=== PATIENT | male | born 1990 | race Caucasian/White ===

== ENCOUNTER 2019-09-23 10:15 | Outpatient (CLI) | payer BC ==
[~2019-09-23 10:15] MED LIST: FLO0.4C PO; HYDR-4353 PO; HYDR-4383 PO; ONDA8TAB13 PO
[2019-09-23] MEDS ORDERED: LIDOcaine 2% 5ml jelly ONE (11:23)
== END 2019-09-23 13:13 | disposition home or self-care (01) ==
LOC: WOUND CARE 10:15 → EDSTATUS 10:30 → WOUND CARE 13:13
PROVIDERS: ATTEND Surgery
DX: T81.30XA Disruption of wound, unspecified, initial encounter (principal); L98.492 Non-pressure chronic ulcer of skin of other sites with fat layer exposed; K65.1 Peritoneal abscess; N13.2 Hydronephrosis with renal and ureteral calculous obstruction; K80.20 Calculus of gallbladder without cholecystitis without obstruction; F17.200 Nicotine dependence, unspecified, uncomplicated; Z90.49 Acquired absence of other specified parts of digestive tract; Z79.899 Other long term (current) drug therapy; Z85.038 Personal history of other malignant neoplasm of large intestine
CPT/HCPCS: 97605; A4456; A4663; A6234

== ENCOUNTER 2019-09-26 09:04 | Outpatient (CLI) | payer BC ==
[~2019-09-26 09:04] MED LIST changes: +iohexol 350MG/ML 100ml bottle IV ONE
[2019-09-26] MEDS ORDERED: LIDOcaine 2% 5ml jelly ONE (09:39)
== END 2019-09-26 11:40 | disposition home or self-care (01) ==
LOC: WOUND CARE 09:04 → EDSTATUS 09:30 → WOUND CARE 11:40
PROVIDERS: ATTEND Surgery
DX: T81.30XD Disruption of wound, unspecified, subsequent encounter (principal); L98.492 Non-pressure chronic ulcer of skin of other sites with fat layer exposed; K65.1 Peritoneal abscess; N13.2 Hydronephrosis with renal and ureteral calculous obstruction; K80.20 Calculus of gallbladder without cholecystitis without obstruction; F17.200 Nicotine dependence, unspecified, uncomplicated; Z90.49 Acquired absence of other specified parts of digestive tract; Z79.899 Other long term (current) drug therapy; Z85.038 Personal history of other malignant neoplasm of large intestine; Y83.8 Other surgical procedures as the cause of abnormal reaction of the patient, or of later complication, without mention of misadventure at the time of the procedure
CPT/HCPCS: 97605; Q9967; A4456; A4663; A6234; A6250

== ENCOUNTER 2019-09-30 10:25 | Day surgery (SDC) | payer BC ==
[~2019-09-30 10:25] MED LIST changes: -iohexol 350MG/ML 100ml bottle IV ONE
[2019-09-30] MEDS ORDERED: LIDOcaine 2% 5ml jelly ONE (11:05)
== END 2019-09-30 12:30 | disposition home or self-care (01) ==
LOC: WOUND CARE 10:25 → EDSTATUS 10:30 → WOUND CARE 12:30
PROVIDERS: ATTEND Surgery
DX: T81.30XD Disruption of wound, unspecified, subsequent encounter (principal); L98.492 Non-pressure chronic ulcer of skin of other sites with fat layer exposed; K65.1 Peritoneal abscess; N13.2 Hydronephrosis with renal and ureteral calculous obstruction; K80.20 Calculus of gallbladder without cholecystitis without obstruction; F17.200 Nicotine dependence, unspecified, uncomplicated; Z90.49 Acquired absence of other specified parts of digestive tract; Z79.899 Other long term (current) drug therapy; Z85.038 Personal history of other malignant neoplasm of large intestine; Y83.8 Other surgical procedures as the cause of abnormal reaction of the patient, or of later complication, without mention of misadventure at the time of the procedure
CPT/HCPCS: 97597; A6266; A4456; A4663; A6243

== ENCOUNTER 2019-10-03 08:47 | Day surgery (SDC) | payer BC ==
[2019-10-03] MEDS ORDERED: LIDOcaine 2% 5ml jelly ONE (09:14)
== END 2019-10-03 10:44 | disposition home or self-care (01) ==
LOC: WOUND CARE 08:47
PROVIDERS: ATTEND Surgery
DX: T81.30XD Disruption of wound, unspecified, subsequent encounter (principal); L98.492 Non-pressure chronic ulcer of skin of other sites with fat layer exposed; K65.1 Peritoneal abscess; N13.2 Hydronephrosis with renal and ureteral calculous obstruction; K80.20 Calculus of gallbladder without cholecystitis without obstruction; F17.200 Nicotine dependence, unspecified, uncomplicated; Z90.49 Acquired absence of other specified parts of digestive tract; Z79.899 Other long term (current) drug therapy; Z85.038 Personal history of other malignant neoplasm of large intestine; Y83.8 Other surgical procedures as the cause of abnormal reaction of the patient, or of later complication, without mention of misadventure at the time of the procedure
CPT/HCPCS: 97597; A6266; A4663; A6243

== ENCOUNTER 2019-10-08 08:30 | Day surgery (SDC) | payer BC ==
[2019-10-08] MEDS ORDERED: LIDOcaine 2% 5ml jelly ONE (09:23)
== END 2019-10-08 10:15 | disposition home or self-care (01) ==
LOC: WOUND CARE 08:30
PROVIDERS: ATTEND Surgery
DX: T81.30XD Disruption of wound, unspecified, subsequent encounter (principal); L98.492 Non-pressure chronic ulcer of skin of other sites with fat layer exposed; K65.1 Peritoneal abscess; N13.2 Hydronephrosis with renal and ureteral calculous obstruction; K80.20 Calculus of gallbladder without cholecystitis without obstruction; F17.200 Nicotine dependence, unspecified, uncomplicated; Z90.49 Acquired absence of other specified parts of digestive tract; Z79.899 Other long term (current) drug therapy; Z85.038 Personal history of other malignant neoplasm of large intestine; Y83.8 Other surgical procedures as the cause of abnormal reaction of the patient, or of later complication, without mention of misadventure at the time of the procedure
CPT/HCPCS: 97597; A6266; A4663; A6243

== ENCOUNTER 2019-10-13 08:45 | Day surgery (SDC) | payer BC ==
[2019-10-13] MEDS ORDERED: LIDOcaine 2% 5ml jelly ONE (09:38)
== END 2019-10-13 11:00 | disposition home or self-care (01) ==
LOC: WOUND CARE 08:45
PROVIDERS: ATTEND Surgery
DX: T81.30XD Disruption of wound, unspecified, subsequent encounter (principal); L98.492 Non-pressure chronic ulcer of skin of other sites with fat layer exposed; K65.1 Peritoneal abscess; N13.2 Hydronephrosis with renal and ureteral calculous obstruction; K80.20 Calculus of gallbladder without cholecystitis without obstruction; F17.200 Nicotine dependence, unspecified, uncomplicated; Z90.49 Acquired absence of other specified parts of digestive tract; Z79.899 Other long term (current) drug therapy; Z85.038 Personal history of other malignant neoplasm of large intestine; Y83.8 Other surgical procedures as the cause of abnormal reaction of the patient, or of later complication, without mention of misadventure at the time of the procedure
CPT/HCPCS: 97597; A6266; A4663; A6243

== ENCOUNTER 2019-10-16 09:00 | Day surgery (SDC) | payer BC ==
[2019-10-16] MEDS ORDERED: LIDOcaine 2% 5ml jelly ONE (09:06)
== END 2019-10-16 10:49 | disposition home or self-care (01) ==
LOC: WOUND CARE 09:00
PROVIDERS: ATTEND Surgery
DX: T81.30XD Disruption of wound, unspecified, subsequent encounter (principal); L98.492 Non-pressure chronic ulcer of skin of other sites with fat layer exposed; K65.1 Peritoneal abscess; N13.2 Hydronephrosis with renal and ureteral calculous obstruction; K80.20 Calculus of gallbladder without cholecystitis without obstruction; F17.200 Nicotine dependence, unspecified, uncomplicated; Z90.49 Acquired absence of other specified parts of digestive tract; Z79.899 Other long term (current) drug therapy; Z85.038 Personal history of other malignant neoplasm of large intestine; Y83.8 Other surgical procedures as the cause of abnormal reaction of the patient, or of later complication, without mention of misadventure at the time of the procedure
CPT/HCPCS: A6266; G0463; A4663

== ENCOUNTER 2019-10-20 12:20 | Day surgery (SDC) | payer BC ==
[2019-10-20] MEDS ORDERED: LIDOcaine 2% 5ml jelly ONE (12:27)
== END 2019-10-20 13:11 | disposition home or self-care (01) ==
LOC: WOUND CARE 12:20
PROVIDERS: ATTEND Surgery
DX: T81.30XD Disruption of wound, unspecified, subsequent encounter (principal); L98.492 Non-pressure chronic ulcer of skin of other sites with fat layer exposed; K65.1 Peritoneal abscess; N13.2 Hydronephrosis with renal and ureteral calculous obstruction; K80.20 Calculus of gallbladder without cholecystitis without obstruction; F17.200 Nicotine dependence, unspecified, uncomplicated; Z90.49 Acquired absence of other specified parts of digestive tract; Z79.899 Other long term (current) drug therapy; Z85.038 Personal history of other malignant neoplasm of large intestine; Y83.8 Other surgical procedures as the cause of abnormal reaction of the patient, or of later complication, without mention of misadventure at the time of the procedure
CPT/HCPCS: 97597; A4663; A6021; A6243

== ENCOUNTER 2019-10-27 12:15 | Day surgery (SDC) | payer BC ==
[2019-10-27] MEDS ORDERED: LIDOcaine 2% 5ml jelly ONE (12:40)
== END 2019-10-27 13:26 | disposition home or self-care (01) ==
LOC: WOUND CARE 12:15
PROVIDERS: ATTEND Surgery
DX: T81.30XD Disruption of wound, unspecified, subsequent encounter (principal); L98.492 Non-pressure chronic ulcer of skin of other sites with fat layer exposed; K65.1 Peritoneal abscess; N13.2 Hydronephrosis with renal and ureteral calculous obstruction; K80.20 Calculus of gallbladder without cholecystitis without obstruction; F17.200 Nicotine dependence, unspecified, uncomplicated; Z90.49 Acquired absence of other specified parts of digestive tract; Z79.899 Other long term (current) drug therapy; Z85.038 Personal history of other malignant neoplasm of large intestine; Y83.8 Other surgical procedures as the cause of abnormal reaction of the patient, or of later complication, without mention of misadventure at the time of the procedure
CPT/HCPCS: 97597; A4663; A6021; A6243

== ENCOUNTER 2019-11-03 12:11 | Day surgery (SDC) | payer BC ==
[2019-11-03] MEDS ORDERED: LIDOcaine 2% 5ml jelly ONE (12:17)
== END 2019-11-03 12:29 | disposition home or self-care (01) ==
LOC: WOUND CARE 12:11
PROVIDERS: ATTEND Surgery
DX: T81.30XD Disruption of wound, unspecified, subsequent encounter (principal); L98.492 Non-pressure chronic ulcer of skin of other sites with fat layer exposed; K65.1 Peritoneal abscess; N13.2 Hydronephrosis with renal and ureteral calculous obstruction; K80.20 Calculus of gallbladder without cholecystitis without obstruction; F17.200 Nicotine dependence, unspecified, uncomplicated; Z90.49 Acquired absence of other specified parts of digestive tract; Z79.899 Other long term (current) drug therapy; Z85.038 Personal history of other malignant neoplasm of large intestine; Y83.8 Other surgical procedures as the cause of abnormal reaction of the patient, or of later complication, without mention of misadventure at the time of the procedure
CPT/HCPCS: 97597; A4663; A6021; A6243

== ENCOUNTER 2019-11-17 12:02 | Day surgery (SDC) | payer BC ==
[2019-11-17] MEDS ORDERED: LIDOcaine 2% 5ml jelly ONE (12:27)
== END 2019-11-17 12:50 | disposition home or self-care (01) ==
LOC: WOUND CARE 12:02
PROVIDERS: ATTEND Surgery
DX: T81.30XD Disruption of wound, unspecified, subsequent encounter (principal); L98.492 Non-pressure chronic ulcer of skin of other sites with fat layer exposed; K65.1 Peritoneal abscess; K80.20 Calculus of gallbladder without cholecystitis without obstruction; N13.2 Hydronephrosis with renal and ureteral calculous obstruction; F17.200 Nicotine dependence, unspecified, uncomplicated; Z79.899 Other long term (current) drug therapy; Z85.038 Personal history of other malignant neoplasm of large intestine; Z87.442 Personal history of urinary calculi; Z90.49 Acquired absence of other specified parts of digestive tract; Y83.8 Other surgical procedures as the cause of abnormal reaction of the patient, or of later complication, without mention of misadventure at the time of the procedure
CPT/HCPCS: 97597; A4663; A6021; A6243

== ENCOUNTER 2019-11-27 12:10 | Day surgery (SDC) | payer BC ==
[2019-11-27] MEDS ORDERED: LIDOcaine 2% 5ml jelly ONE (12:30)
== END 2019-11-27 13:00 | disposition home or self-care (01) ==
LOC: WOUND CARE 12:10
PROVIDERS: ATTEND Surgery
DX: T81.30XD Disruption of wound, unspecified, subsequent encounter (principal); L98.492 Non-pressure chronic ulcer of skin of other sites with fat layer exposed; K65.1 Peritoneal abscess; K80.20 Calculus of gallbladder without cholecystitis without obstruction; N13.2 Hydronephrosis with renal and ureteral calculous obstruction; F17.200 Nicotine dependence, unspecified, uncomplicated; Z79.899 Other long term (current) drug therapy; Z85.038 Personal history of other malignant neoplasm of large intestine; Z87.442 Personal history of urinary calculi; Z90.49 Acquired absence of other specified parts of digestive tract; Y83.8 Other surgical procedures as the cause of abnormal reaction of the patient, or of later complication, without mention of misadventure at the time of the procedure
CPT/HCPCS: 97597; A4663; A6021

== ENCOUNTER 2019-12-02 11:37 | Day surgery (SDC) | payer BC ==
[2019-12-02] MEDS ORDERED: LIDOcaine 2% 5ml jelly ONE (11:57)
== END 2019-12-02 12:20 | disposition home or self-care (01) ==
LOC: WOUND CARE 11:37
PROVIDERS: ATTEND Nurse Practitioner Family
DX: T81.30XD Disruption of wound, unspecified, subsequent encounter (principal); L98.492 Non-pressure chronic ulcer of skin of other sites with fat layer exposed; K65.1 Peritoneal abscess; K80.20 Calculus of gallbladder without cholecystitis without obstruction; N13.2 Hydronephrosis with renal and ureteral calculous obstruction; F17.200 Nicotine dependence, unspecified, uncomplicated; Z79.899 Other long term (current) drug therapy; Z85.038 Personal history of other malignant neoplasm of large intestine; Z87.442 Personal history of urinary calculi; Z90.49 Acquired absence of other specified parts of digestive tract; Y83.8 Other surgical procedures as the cause of abnormal reaction of the patient, or of later complication, without mention of misadventure at the time of the procedure
CPT/HCPCS: 97597; A4663; A6021

== ENCOUNTER 2019-12-09 11:27 | Day surgery (SDC) | payer BC ==
[2019-12-09] MEDS ORDERED: LIDOcaine 2% 5ml jelly ONE (11:37)
== END 2019-12-09 12:24 | disposition home or self-care (01) ==
LOC: WOUND CARE 11:27
PROVIDERS: ATTEND Nurse Practitioner Family
DX: T81.30XD Disruption of wound, unspecified, subsequent encounter (principal); L98.492 Non-pressure chronic ulcer of skin of other sites with fat layer exposed; K65.1 Peritoneal abscess; K80.20 Calculus of gallbladder without cholecystitis without obstruction; N13.2 Hydronephrosis with renal and ureteral calculous obstruction; F17.200 Nicotine dependence, unspecified, uncomplicated; Z79.899 Other long term (current) drug therapy; Z85.038 Personal history of other malignant neoplasm of large intestine; Z87.442 Personal history of urinary calculi; Z90.49 Acquired absence of other specified parts of digestive tract; Y83.8 Other surgical procedures as the cause of abnormal reaction of the patient, or of later complication, without mention of misadventure at the time of the procedure
CPT/HCPCS: 97597; A4663; A6021; A6243

== ENCOUNTER 2019-12-16 11:43 | Day surgery (SDC) | payer BC ==
[2019-12-16] MEDS ORDERED: LIDOcaine 2% 5ml jelly ONE (11:52)
== END 2019-12-16 12:22 | disposition home or self-care (01) ==
LOC: WOUND CARE 11:43
PROVIDERS: ATTEND Nurse Practitioner Family
DX: T81.30XD Disruption of wound, unspecified, subsequent encounter (principal); L98.492 Non-pressure chronic ulcer of skin of other sites with fat layer exposed; K65.1 Peritoneal abscess; K80.20 Calculus of gallbladder without cholecystitis without obstruction; N13.2 Hydronephrosis with renal and ureteral calculous obstruction; F17.200 Nicotine dependence, unspecified, uncomplicated; Z79.899 Other long term (current) drug therapy; Z85.038 Personal history of other malignant neoplasm of large intestine; Z87.442 Personal history of urinary calculi; Z90.49 Acquired absence of other specified parts of digestive tract; Y83.8 Other surgical procedures as the cause of abnormal reaction of the patient, or of later complication, without mention of misadventure at the time of the procedure
CPT/HCPCS: 97597

== ENCOUNTER 2019-12-23 11:58 | Day surgery (SDC) | payer BC | END 2019-12-24 12:04 | disposition home or self-care (01) | LOC: WOUND CARE 11:58 | PROVIDERS: ATTEND Surgery | DX: T81.30XD Disruption of wound, unspecified, subsequent encounter (principal); L98.492 Non-pressure chronic ulcer of skin of other sites with fat layer exposed; K65.1 Peritoneal abscess; K80.20 Calculus of gallbladder without cholecystitis without obstruction; N13.2 Hydronephrosis with renal and ureteral calculous obstruction; F17.200 Nicotine dependence, unspecified, uncomplicated; Z79.899 Other long term (current) drug therapy; Z85.038 Personal history of other malignant neoplasm of large intestine; Z87.442 Personal history of urinary calculi; Z90.49 Acquired absence of other specified parts of digestive tract; Y83.8 Other surgical procedures as the cause of abnormal reaction of the patient, or of later complication, without mention of misadventure at the time of the procedure | CPT/HCPCS: 97597 ==

== ENCOUNTER 2020-01-08 12:20 | Day surgery (SDC) | payer BC ==
[2020-01-08] MEDS ORDERED: LIDOcaine 2% 5ml jelly ONE (12:29)
== END 2020-01-08 13:40 | disposition home or self-care (01) ==
LOC: WOUND CARE 12:20
PROVIDERS: ATTEND Surgery
DX: T81.30XD Disruption of wound, unspecified, subsequent encounter (principal); L98.492 Non-pressure chronic ulcer of skin of other sites with fat layer exposed; K65.1 Peritoneal abscess; K80.20 Calculus of gallbladder without cholecystitis without obstruction; N13.2 Hydronephrosis with renal and ureteral calculous obstruction; F17.200 Nicotine dependence, unspecified, uncomplicated; Z79.899 Other long term (current) drug therapy; Z85.038 Personal history of other malignant neoplasm of large intestine; Z87.442 Personal history of urinary calculi; Z90.49 Acquired absence of other specified parts of digestive tract; Y83.8 Other surgical procedures as the cause of abnormal reaction of the patient, or of later complication, without mention of misadventure at the time of the procedure
CPT/HCPCS: 97597

== ENCOUNTER 2020-01-12 12:15 | Day surgery (SDC) | payer BC ==
[2020-01-12] MEDS ORDERED: LIDOcaine 2% 5ml jelly ONE (12:27)
== END 2020-01-12 12:44 | disposition home or self-care (01) ==
LOC: WOUND CARE 12:15
PROVIDERS: ATTEND Surgery
DX: T81.30XD Disruption of wound, unspecified, subsequent encounter (principal); L98.492 Non-pressure chronic ulcer of skin of other sites with fat layer exposed; K65.1 Peritoneal abscess; K80.20 Calculus of gallbladder without cholecystitis without obstruction; N13.2 Hydronephrosis with renal and ureteral calculous obstruction; F17.200 Nicotine dependence, unspecified, uncomplicated; Z79.899 Other long term (current) drug therapy; Z85.038 Personal history of other malignant neoplasm of large intestine; Z87.442 Personal history of urinary calculi; Z90.49 Acquired absence of other specified parts of digestive tract; Y83.8 Other surgical procedures as the cause of abnormal reaction of the patient, or of later complication, without mention of misadventure at the time of the procedure
CPT/HCPCS: 97597; A6021; A6253

== ENCOUNTER 2020-02-09 11:40 | Day surgery (SDC) | payer BC ==
[~2020-02-09] VITALS: Ht 172.7 cm; Wt 66.2 kg
[~2020-02-09 11:40] MED LIST changes: +LIDOcaine 2% 5ml jelly ONE
[2020-02-09 12:45] VITALS: BP 131/81
[2020-02-09] MEDS ORDERED: famotidine 20mg tablet PO ONE (13:00)
[2020-02-09] MEDS ORDERED: LIDOcaine 1% (10mg/ml) 2ml vial ONE (13:05)
[2020-02-09] MEDS ORDERED: ceFAZolin 1000mg inj IR ONE (13:40)
[2020-02-09] MEDS ORDERED: cefazolin/dext.iso 2gm/100ml 100 ML IV ONE (13:50)
[2020-02-09] MEDS ORDERED: NO HOME MEDS (14:00)
[2020-02-09] MEDS ORDERED: LIDOcaine 2% 10ml TOPICAL JELLY (Urojet) ONE (14:17)
[2020-02-09] MEDS ORDERED: BUPIVAcaine/PF 2.5 mg/ml (0.25%) 30ml vial ONE (14:17)
[2020-02-09] MEDS ORDERED: glycopyrrolate 0.2mg/ml inj ONE (14:20)
[2020-02-09] MEDS ORDERED: dexamethasone sod phosphate 10mg/ml inj ONE (14:20)
[2020-02-09] MEDS ORDERED: sevoflurane 250ml liquid IH ONE (14:20)
[2020-02-09] MEDS ORDERED: neostigmine methylsulfate 1 MG/ML 10ml vial ONE (14:20)
[2020-02-09] MEDS ORDERED: fentaNYL/PF 50MCG/1 ML 2ML syringe ONE (14:23)
[2020-02-09] MEDS ORDERED: midazolam 2 mg/2 ml injection ONE (14:24)
[2020-02-09] MEDS ORDERED: LIDOcaine 2% (20mg/ml) 5ml vial ONE (14:42)
[2020-02-09] MEDS ORDERED: rocuronium 10mg/ml inj IV ONE (14:42)
[2020-02-09] MEDS ORDERED: ondansetron/PF 4mg/2ml inj ONE (14:42)
[2020-02-09] MEDS ORDERED: propofol inj 20 ML IV ONE (14:42)
[2020-02-09] MEDS ORDERED: acetaminophen 1,000mg/100ml IV 100 ML IV ONE (14:50)
[2020-02-09 15:05] VITALS: BP 121/82
--- NOTE | 2020-02-09 15:05 | NUR ---
Received from OR via BED, accompanied by Anesthesiologist DR ESCOBAR and report given by Anesthesiolgist. PATIENT A&OX4, DENIES P[AIN, V/S WNL, CSM INTACT, DRESSING TO PERIRECTAL AREA CDI, 20G PIV LUE, SCD ON, COLOSTOMY INTACT W. PINK STOMA
[2020-02-09 15:15] VITALS: BP 127/78
[2020-02-09] MEDS ORDERED: ondansetron/PF 4mg/2ml inj IV PRN (15:15)
[2020-02-09] MEDS ORDERED: morphine 4 MG/ML inj SYRINge IV PRN (15:15)
[2020-02-09] MEDS ORDERED: morphine 2 MG/ML inj. syringe IV PRN (15:15)
[2020-02-09] MEDS ORDERED: meperidine/PF 25mg/ml syringe IV PRN ×3 (15:15)
[2020-02-09] MEDS ORDERED: ringers solution, lacted 1,000 ML IV SCH (15:15)
[2020-02-09] MEDS ORDERED: proCHLORperazine 10 MG/2 ml inj IV PRN (15:15)
[2020-02-09 15:25] VITALS: BP 123/81
[2020-02-09 15:35] VITALS: BP 121/78
[2020-02-09 15:45] VITALS: BP 127/81
--- NOTE | 2020-02-09 15:45 | NUR ---
PATIENT A&OX4, DENIES PAIN, V/S WNL, CSM INTACT, PIV D/C SCD OFF, DRESSING TO POSTERIOR PERIRECTAL AREA CDI, I HAVE REVIEWED D/C INSTRUCTIONS WITH PATIENT AND HE HAS VERBALIOZED UNDERSTANDING. PATIENT D/C HOME WITH ALL BELONGINGS AND HIS FRIEND GAVE TRANSPORT
[2020-02-10 13:06] LABS: BASOPHILS # (AUTO) 0.1 X10'3 (0-0.2); BASOPHILS % (AUTO) 1.1 % (0-1); EOSINOPHILS # (AUTO) 0.2 X10'3 (0-0.9); EOSINOPHILS % (AUTO) 2.9 % (0-6); LYMPHOCYTES # (AUTO) 1.2 X10'3 (1.1-4.8); LYMPHOCYTES % (AUTO) 15.4 % (21-51); MEAN CORPUSCULAR HEMOGLOBIN 18.6 PG (27.0-31.0); MEAN CORPUSCULAR HGB CONC 29.1 g/dL (33.0-36.5); MEAN CORPUSCULAR VOLUME 63.9 FL (78-98); MONOCYTES # (AUTO) 0.5 X10'3 (0-0.9); MONOCYTES % (AUTO) 6.6 % (2-12); PRE OP HEMATOCRIT 30.5 % (42.0-52.0); PRE OP PLATELET COUNT 301 X10'3 (140-440); RED BLOOD COUNT 4.77 X10'6 (4.70-6.10); RED CELL DISTRIBUTION WIDTH 20.9 % (11.5-14.5)
[2020-02-10 13:12] LABS: ALANINE AMINOTRANSFERASE 20 U/L (12-78); ALBUMIN 3.6 G/DL (3.4-5.0); ALBUMIN/GLOBULIN RATIO 0.9 (1.1-1.5); ALKALINE PHOSPHATASE 65 IU/L (46-116); ANION GAP 8 (8-16); ASPARTATE AMINO TRANSFERASE 32 U/L (10-37); BILIRUBIN,TOTAL 0.1 MG/DL (0.1-1.0); BLOOD UREA NITROGEN 13 MG/DL (7-18); BUN/CREATININE RATIO 14.9 (5.4-32.0); CALCIUM 8.5 MG/DL (8.5-10.1); CHLORIDE 106 MMOL/L (99-107); CREATININE 0.87 MG/DL (0.60-1.10); GLUCOSE 68 MG/DL (70-104); SODIUM 140 MMOL/L (135-145); TOTAL PROTEIN 7.7 G/DL (6.4-8.2); eGFR > 90 ML/MIN
[2020-02-10 13:15] LABS: POTASSIUM 4.1 MMOL/L (3.5-5.1)
[2020-02-10 13:25] LABS: ANISOCYTOSIS 3+; MICROCYTOSIS 2+; PLATELET ESTIMATE NORMAL
[2020-02-10 13:26] LABS: ELLIPTOCYTES 1+
[2020-02-10 13:27] LABS: LARGE PLATELETS FEW; POLYCHROMASIA FEW
[2020-02-10 13:31] LABS: PRE OP HEMOGLOBIN 8.9 g/dL (14.0-17.9)
== END 2020-02-09 15:45 | disposition home or self-care (01) ==
LOC: WOUND CARE 11:40
PROVIDERS: ATTEND Emergency Medicine
DX: K65.1 Peritoneal abscess (principal); T81.30XD Disruption of wound, unspecified, subsequent encounter; L98.492 Non-pressure chronic ulcer of skin of other sites with fat layer exposed; K80.20 Calculus of gallbladder without cholecystitis without obstruction; N13.2 Hydronephrosis with renal and ureteral calculous obstruction; F17.200 Nicotine dependence, unspecified, uncomplicated; Z79.899 Other long term (current) drug therapy; Z85.038 Personal history of other malignant neoplasm of large intestine; Z87.442 Personal history of urinary calculi; Z90.49 Acquired absence of other specified parts of digestive tract; Z98.890 Other specified postprocedural states; Z86.010 Personal history of colon polyps; L89.156 Pressure-induced deep tissue damage of sacral region; L02.31 Cutaneous abscess of buttock
CPT/HCPCS: 36415; 80053; 82948; 85025; 97597; A6223; J0131; J1100; J2001; J2175; J2250; J2405; J2704; J2710; J3010; J3490; J7120; 17250; A4618; A6253; A6449; A7000; G0463; J2270

== ENCOUNTER 2020-02-16 11:40 | Outpatient (CLI) | payer BC ==
[~2020-02-16 11:40] MED LIST changes: -FLO0.4C PO; -HYDR-4353 PO; -HYDR-4383 PO; -LIDOcaine 2% 5ml jelly ONE; +NO HOME MEDS; -ONDA8TAB13 PO
[2020-02-16] MEDS ORDERED: LIDOcaine 2% 5ml jelly ONE (11:43)
== END 2020-02-16 12:28 | disposition home or self-care (01) ==
LOC: WOUND CARE 11:40
PROVIDERS: ATTEND Nurse Practitioner
DX: T81.30XD Disruption of wound, unspecified, subsequent encounter (principal); L98.492 Non-pressure chronic ulcer of skin of other sites with fat layer exposed; K65.1 Peritoneal abscess; K80.20 Calculus of gallbladder without cholecystitis without obstruction; N13.2 Hydronephrosis with renal and ureteral calculous obstruction; F17.200 Nicotine dependence, unspecified, uncomplicated; Z79.899 Other long term (current) drug therapy; Z85.038 Personal history of other malignant neoplasm of large intestine; Z87.442 Personal history of urinary calculi; Z90.49 Acquired absence of other specified parts of digestive tract; Z98.890 Other specified postprocedural states; Z86.010 Personal history of colon polyps; Y83.8 Other surgical procedures as the cause of abnormal reaction of the patient, or of later complication, without mention of misadventure at the time of the procedure
CPT/HCPCS: G0463

== ENCOUNTER 2020-02-17 12:10 | Outpatient (CLI) | payer BC ==
[~2020-02-17 12:10] MED LIST changes: +FLO0.4C PO; +HYDR-4353 PO; +HYDR-4383 PO; +ONDA8TAB13 PO
== END 2020-02-17 12:37 | disposition home or self-care (01) ==
LOC: WOUND CARE 12:10
PROVIDERS: ATTEND Nurse Practitioner Family
DX: T81.30XD Disruption of wound, unspecified, subsequent encounter (principal); L98.492 Non-pressure chronic ulcer of skin of other sites with fat layer exposed; K65.1 Peritoneal abscess; K80.20 Calculus of gallbladder without cholecystitis without obstruction; N13.2 Hydronephrosis with renal and ureteral calculous obstruction; F17.200 Nicotine dependence, unspecified, uncomplicated; Z79.899 Other long term (current) drug therapy; Z85.038 Personal history of other malignant neoplasm of large intestine; Z87.442 Personal history of urinary calculi; Z90.49 Acquired absence of other specified parts of digestive tract; Z98.890 Other specified postprocedural states; Z86.010 Personal history of colon polyps; Y83.8 Other surgical procedures as the cause of abnormal reaction of the patient, or of later complication, without mention of misadventure at the time of the procedure
CPT/HCPCS: G0463

== ENCOUNTER 2020-02-24 12:05 | Day surgery (SDC) | payer BC ==
[~2020-02-24 12:05] MED LIST changes: -FLO0.4C PO; -HYDR-4353 PO; -HYDR-4383 PO; -ONDA8TAB13 PO
== END 2020-02-24 12:47 | disposition home or self-care (01) ==
LOC: WOUND CARE 12:05
PROVIDERS: ATTEND Nurse Practitioner Family
DX: T81.30XD Disruption of wound, unspecified, subsequent encounter (principal); L98.492 Non-pressure chronic ulcer of skin of other sites with fat layer exposed; K65.1 Peritoneal abscess; K80.20 Calculus of gallbladder without cholecystitis without obstruction; N13.2 Hydronephrosis with renal and ureteral calculous obstruction; F17.200 Nicotine dependence, unspecified, uncomplicated; Z79.899 Other long term (current) drug therapy; Z85.038 Personal history of other malignant neoplasm of large intestine; Z87.442 Personal history of urinary calculi; Z90.49 Acquired absence of other specified parts of digestive tract; Z98.890 Other specified postprocedural states; Z86.010 Personal history of colon polyps; Y83.8 Other surgical procedures as the cause of abnormal reaction of the patient, or of later complication, without mention of misadventure at the time of the procedure
CPT/HCPCS: 97597

== ENCOUNTER 2020-03-01 12:02 | Day surgery (SDC) | payer BC ==
[2020-03-01] MEDS ORDERED: LIDOcaine 2% 5ml jelly ONE (12:17)
== END 2020-03-01 12:51 | disposition home or self-care (01) ==
LOC: WOUND CARE 12:02
PROVIDERS: ATTEND Nurse Practitioner
DX: T81.31XD Disruption of external operation (surgical) wound, not elsewhere classified, subsequent encounter (principal); L98.492 Non-pressure chronic ulcer of skin of other sites with fat layer exposed; K65.1 Peritoneal abscess; K80.20 Calculus of gallbladder without cholecystitis without obstruction; N18.2 Chronic kidney disease, stage 2 (mild); F17.200 Nicotine dependence, unspecified, uncomplicated; Z79.899 Other long term (current) drug therapy; Z85.038 Personal history of other malignant neoplasm of large intestine; Z87.442 Personal history of urinary calculi; Z90.49 Acquired absence of other specified parts of digestive tract; Z98.890 Other specified postprocedural states; Z86.010 Personal history of colon polyps; Y83.8 Other surgical procedures as the cause of abnormal reaction of the patient, or of later complication, without mention of misadventure at the time of the procedure
CPT/HCPCS: 97597

== ENCOUNTER 2020-04-23 12:00 | Outpatient (CLI) | payer BC ==
[2020-04-23] MEDS ORDERED: LIDOcaine 2% 5ml jelly ONE (12:44)
== END 2020-04-23 12:27 | disposition home or self-care (01) ==
LOC: EDSTATUS 12:00 → WOUND CARE 12:00
PROVIDERS: ATTEND Nurse Practitioner
DX: T81.31XD Disruption of external operation (surgical) wound, not elsewhere classified, subsequent encounter (principal); L98.492 Non-pressure chronic ulcer of skin of other sites with fat layer exposed; N18.2 Chronic kidney disease, stage 2 (mild); F17.210 Nicotine dependence, cigarettes, uncomplicated; Z79.899 Other long term (current) drug therapy; Z98.890 Other specified postprocedural states; Z90.49 Acquired absence of other specified parts of digestive tract; Z86.010 Personal history of colon polyps; Z85.038 Personal history of other malignant neoplasm of large intestine; Y83.8 Other surgical procedures as the cause of abnormal reaction of the patient, or of later complication, without mention of misadventure at the time of the procedure
CPT/HCPCS: 97597

== ENCOUNTER 2020-04-29 12:03 | Day surgery (SDC) | payer BC ==
[2020-04-29] MEDS ORDERED: LIDOcaine 2% 5ml jelly ONE (12:08)
== END 2020-04-29 12:48 | disposition home or self-care (01) ==
LOC: WOUND CARE 12:03
PROVIDERS: ATTEND Nurse Practitioner
DX: T81.31XD Disruption of external operation (surgical) wound, not elsewhere classified, subsequent encounter (principal); L98.492 Non-pressure chronic ulcer of skin of other sites with fat layer exposed; N18.2 Chronic kidney disease, stage 2 (mild); F17.210 Nicotine dependence, cigarettes, uncomplicated; Z79.899 Other long term (current) drug therapy; Z98.890 Other specified postprocedural states; Z90.49 Acquired absence of other specified parts of digestive tract; Z86.010 Personal history of colon polyps; Z85.038 Personal history of other malignant neoplasm of large intestine; Y83.8 Other surgical procedures as the cause of abnormal reaction of the patient, or of later complication, without mention of misadventure at the time of the procedure
CPT/HCPCS: 97597

== ENCOUNTER 2020-05-25 11:30 | Day surgery (SDC) | payer BC ==
[2020-05-25] MEDS ORDERED: LIDOcaine 2% 5ml jelly ONE ×2 (11:59→12:11)
== END 2020-05-25 13:02 | disposition home or self-care (01) ==
LOC: WOUND CARE 11:30
PROVIDERS: ATTEND Nurse Practitioner
DX: T81.31XD Disruption of external operation (surgical) wound, not elsewhere classified, subsequent encounter (principal); L98.492 Non-pressure chronic ulcer of skin of other sites with fat layer exposed; N18.2 Chronic kidney disease, stage 2 (mild); F17.210 Nicotine dependence, cigarettes, uncomplicated; Z79.899 Other long term (current) drug therapy; Z98.890 Other specified postprocedural states; Z90.49 Acquired absence of other specified parts of digestive tract; Z86.010 Personal history of colon polyps; Z85.038 Personal history of other malignant neoplasm of large intestine; Y83.8 Other surgical procedures as the cause of abnormal reaction of the patient, or of later complication, without mention of misadventure at the time of the procedure
CPT/HCPCS: 36415; 97597

== ENCOUNTER 2020-05-27 07:41 | Day surgery (SDC) | payer BC ==
[2020-05-27] VITALS (11 sets, daily range): BP systolic 110–131; BP diastolic 51–87
[~2020-05-27] VITALS: Ht 172.7 cm; Wt 67.1 kg
[~2020-05-27 07:41] MED LIST changes: +cefazolin/dext.iso 2gm/50ml 50 ML IV ONE; +famotidine 20mg tablet PO ONE; +ringers solution, lacted 1,000 ML IV SCH
[2020-05-27 11:01] LABS: BASOPHILS # (AUTO) 0.1 X10'3 (0-0.2); BASOPHILS % (AUTO) 1.8 % (0-1); EOSINOPHILS # (AUTO) 0.2 X10'3 (0-0.9); EOSINOPHILS % (AUTO) 3.3 % (0-6); LYMPHOCYTES % (AUTO) 16.9 % (21-51); MEAN CORPUSCULAR HEMOGLOBIN 18.8 PG (27.0-31.0); MEAN CORPUSCULAR HGB CONC 29.8 g/dL (33.0-36.5); MEAN CORPUSCULAR VOLUME 63.2 FL (78-98); MEAN PLATELET VOLUME 8.1 FL (7.4-10.4); MONOCYTES # (AUTO) 0.5 X10'3 (0-0.9); MONOCYTES % (AUTO) 7.8 % (2-12); NEUTROPHILS # (AUTO) 4.4 X10'3 (1.8-7.7); NEUTROPHILS % (AUTO) 70.2 % (42-75); PRE OP HEMATOCRIT 30.8 % (42.0-52.0); PRE OP PLATELET COUNT 325 X10'3 (140-440); RED BLOOD COUNT 4.86 X10'6 (4.70-6.10); RED CELL DISTRIBUTION WIDTH 19.8 % (11.5-14.5)
[2020-05-27 11:14] LABS: ALBUMIN 3.6 G/DL (3.4-5.0); ALBUMIN/GLOBULIN RATIO 0.8 (1.1-1.5); ALKALINE PHOSPHATASE 62 IU/L (46-116); BLOOD UREA NITROGEN 9 MG/DL (7-18); BUN/CREATININE RATIO 10.2 (5.4-32.0); CALCIUM 8.8 MG/DL (8.5-10.1); CHLORIDE 105 MMOL/L (99-107); CREATININE 0.88 MG/DL (0.60-1.10); PRE OP ALT 23 U/L (30-65); PRE OP ANION GAP 9 (8-16); PRE OP AST 21 U/L (10-37); PRE OP BILIRUB, TOTAL 0.3 MG/DL (0.0-1.0); PRE OP GLUCOSE 82 MG/DL (70-104); PRE OP POTASSIUM 3.9 MMOL/L (3.4-5.1); PRE OP SODIUM 139 MMOL/L (135-145); TOTAL CARBON DIOXIDE 24.6 MMOL/L (24-32); eGFR > 90 ML/MIN
[2020-05-27 11:18] LABS: PRE OP HEMOGLOBIN 9.2 g/dL (14.0-17.9)
[2020-05-27 12:46] LABS: ANISOCYTOSIS 2+; ELLIPTOCYTES 1+; MICROCYTOSIS 2+; PLATELET ESTIMATE NORMAL
[2020-05-27 12:47] LABS: POLYCHROMASIA FEW; SCHISTOCYTES FEW
[2020-05-27] MEDS ORDERED: sevoflurane 250ml liquid IH ONE (13:16)
[2020-05-27] MEDS ORDERED: propofol 10mg/ml 20ml vial IV ONE (13:16)
[2020-05-27] MEDS ORDERED: fentaNYL/PF 50MCG/1 ML 2ML syringe ONE (13:17)
[2020-05-27] MEDS ORDERED: rocuronium 10mg/ml inj IV ONE (13:38)
[2020-05-27] MEDS ORDERED: ondansetron/PF 4mg/2ml inj ONE (13:38)
[2020-05-27] MEDS ORDERED: dexamethasone sod phosphate 4mg/ml inj. ONE (13:38)
[2020-05-27] MEDS ORDERED: midazolam 2 mg/2 ml injection ONE (13:38)
[2020-05-27] MEDS ORDERED: LIDOcaine 2% (20mg/ml) 5ml vial ONE (13:38)
[2020-05-27] MEDS ORDERED: glycopyrrolate 0.2mg/ml inj ONE (14:18)
[2020-05-27] MEDS ORDERED: neostigmine methylsulfate 1 MG/ML 10ml vial ONE (14:18)
--- NOTE | 2020-05-27 14:20 | NUR ---
Received from OR via , accompanied by Anesthesiologist DR VILLAREAL and report given by Anesthesiolgist. AWAKENS TO VOICE. VITALS STABLE. DRESSING DI. APRIL PAIN.
[2020-05-27] MEDS ORDERED: ringers solution, lacted 1,000 ML IV SCH (14:24)
[2020-05-27] MEDS ORDERED: morphine 4 MG/ML inj SYRINge IV PRN (14:25)
[2020-05-27] MEDS ORDERED: ondansetron/PF 4mg/2ml inj IV PRN (14:25)
[2020-05-27] MEDS ORDERED: morphine 2 MG/ML inj. syringe IV PRN (14:25)
[2020-05-27] MEDS ORDERED: acetaminophen 1,000mg/100ml IV 100 ML IV PRN (14:25)
[2020-05-27] MEDS ORDERED: meperidine/PF 25mg/ml syringe IV PRN ×3 (14:25)
[2020-05-27] MEDS ORDERED: proCHLORperazine 10 MG/2 ml inj IV PRN (14:25)
--- NOTE | 2020-05-27 16:00 | NUR ---
AWAKE AND ORIENTED. VITALS STABLE. DRESSING DI. APRIL PAIN. HOME WITH A FRIEND AT THIS TIME.
== END 2020-05-27 16:00 | disposition home or self-care (01) ==
LOC: PAS 07:41
PROVIDERS: ATTEND Surgery
DX: T81.89XA Other complications of procedures, not elsewhere classified, initial encounter (principal); K62.89 Other specified diseases of anus and rectum; F17.290 Nicotine dependence, other tobacco product, uncomplicated; Z72.89 Other problems related to lifestyle; Z98.890 Other specified postprocedural states; Z93.2 Ileostomy status; Z87.442 Personal history of urinary calculi; Z88.8 Allergy status to other drugs, medicaments and biological substances; Z87.19 Personal history of other diseases of the digestive system; Y83.8 Other surgical procedures as the cause of abnormal reaction of the patient, or of later complication, without mention of misadventure at the time of the procedure; Y92.89 Other specified places as the place of occurrence of the external cause
CPT/HCPCS: 36415; 45100; 80053; 85025; J1100; J2001; J2175; J2250; J2405; J2704; J2710; J3010; J7120; A4618; A7000; J3490

== ENCOUNTER 2020-06-07 11:48 | Outpatient (CLI) | payer BC ==
[~2020-06-07 11:48] MED LIST changes: -cefazolin/dext.iso 2gm/50ml 50 ML IV ONE; -famotidine 20mg tablet PO ONE; -ringers solution, lacted 1,000 ML IV SCH
[2020-06-07] MEDS ORDERED: LIDOcaine 2% 5ml jelly ONE (12:56)
== END 2020-06-07 14:03 | disposition home or self-care (01) ==
LOC: WOUND CARE 11:48
PROVIDERS: ATTEND Nurse Practitioner Family
DX: T81.31XD Disruption of external operation (surgical) wound, not elsewhere classified, subsequent encounter (principal); L98.492 Non-pressure chronic ulcer of skin of other sites with fat layer exposed; N18.2 Chronic kidney disease, stage 2 (mild); F17.210 Nicotine dependence, cigarettes, uncomplicated; Z79.899 Other long term (current) drug therapy; Z98.890 Other specified postprocedural states; Z90.49 Acquired absence of other specified parts of digestive tract; Z86.010 Personal history of colon polyps; Z85.038 Personal history of other malignant neoplasm of large intestine; Y83.8 Other surgical procedures as the cause of abnormal reaction of the patient, or of later complication, without mention of misadventure at the time of the procedure
CPT/HCPCS: 97605

== ENCOUNTER 2020-06-10 11:40 | Day surgery (SDC) | payer BC ==
[2020-06-10] MEDS ORDERED: LIDOcaine 2% 5ml jelly ONE ×2 (12:04→13:02)
== END 2020-06-10 13:50 | disposition home or self-care (01) ==
LOC: WOUND CARE 11:40
PROVIDERS: ATTEND Nurse Practitioner
DX: T81.31XD Disruption of external operation (surgical) wound, not elsewhere classified, subsequent encounter (principal); L98.492 Non-pressure chronic ulcer of skin of other sites with fat layer exposed; N18.2 Chronic kidney disease, stage 2 (mild); F17.210 Nicotine dependence, cigarettes, uncomplicated; Z79.899 Other long term (current) drug therapy; Z98.890 Other specified postprocedural states; Z90.49 Acquired absence of other specified parts of digestive tract; Z86.010 Personal history of colon polyps; Z85.038 Personal history of other malignant neoplasm of large intestine; Y83.8 Other surgical procedures as the cause of abnormal reaction of the patient, or of later complication, without mention of misadventure at the time of the procedure
CPT/HCPCS: 97597

== ENCOUNTER 2020-07-01 12:00 | Day surgery (SDC) | payer BC ==
[2020-07-01] MEDS ORDERED: LIDOcaine 2% 5ml jelly ONE (12:22)
[2020-07-01 14:06] LABS: BASOPHILS # (AUTO) 0.1 X10'3 (0-0.2); BASOPHILS % (AUTO) 1.5 % (0-1); EOSINOPHILS # (AUTO) 0.2 X10'3 (0-0.9); EOSINOPHILS % (AUTO) 3.4 % (0-6); HEMATOCRIT 32.6 % (42.0-52.0); HEMOGLOBIN 9.6 g/dl (14.0-17.9); LYMPHOCYTES # (AUTO) 1.6 X10'3 (1.1-4.8); LYMPHOCYTES % (AUTO) 21.3 % (21-51); MEAN CORPUSCULAR HEMOGLOBIN 18.8 PG (27.0-31.0); MEAN CORPUSCULAR HGB CONC 29.5 g/dL (33.0-36.5); MEAN CORPUSCULAR VOLUME 63.6 FL (78-98); MEAN PLATELET VOLUME 8.8 FL (7.4-10.4); MONOCYTES # (AUTO) 0.5 X10'3 (0-0.9); MONOCYTES % (AUTO) 6.5 % (2-12); NEUTROPHILS # (AUTO) 4.9 X10'3 (1.8-7.7); NEUTROPHILS % (AUTO) 67.3 % (42-75); RED BLOOD COUNT 5.13 X10'6 (4.70-6.10); RED CELL DISTRIBUTION WIDTH 19.6 % (11.5-14.5); WHITE BLOOD COUNT 7.4 X10'3 (4.5-11.0)
[2020-07-01 14:55] LABS: ANISOCYTOSIS 2+; MICROCYTOSIS 2+; PLATELET ESTIMATE NORMAL
[2020-07-01 14:56] LABS: ELLIPTOCYTES 1+; POLYCHROMASIA FEW; SCHISTOCYTES FEW
== END 2020-07-01 13:52 | disposition home or self-care (01) ==
LOC: WOUND CARE 12:00
PROVIDERS: ATTEND Nurse Practitioner
DX: T81.31XD Disruption of external operation (surgical) wound, not elsewhere classified, subsequent encounter (principal); L98.492 Non-pressure chronic ulcer of skin of other sites with fat layer exposed; N18.2 Chronic kidney disease, stage 2 (mild); F17.210 Nicotine dependence, cigarettes, uncomplicated; Z79.899 Other long term (current) drug therapy; Z98.890 Other specified postprocedural states; Z90.49 Acquired absence of other specified parts of digestive tract; Z86.010 Personal history of colon polyps; Z85.038 Personal history of other malignant neoplasm of large intestine; Y83.8 Other surgical procedures as the cause of abnormal reaction of the patient, or of later complication, without mention of misadventure at the time of the procedure
CPT/HCPCS: 36415; 83036; 85008; 85025; 97597

== ENCOUNTER 2020-07-08 12:14 | Day surgery (SDC) | payer BC ==
[2020-07-08] MEDS ORDERED: LIDOcaine 2% 5ml jelly ONE ×2 (12:21)
== END 2020-07-08 13:07 | disposition home or self-care (01) ==
LOC: WOUND CARE 12:14
PROVIDERS: ATTEND Nurse Practitioner
DX: T81.31XD Disruption of external operation (surgical) wound, not elsewhere classified, subsequent encounter (principal); L98.492 Non-pressure chronic ulcer of skin of other sites with fat layer exposed; N18.2 Chronic kidney disease, stage 2 (mild); F17.210 Nicotine dependence, cigarettes, uncomplicated; Z79.899 Other long term (current) drug therapy; Z98.890 Other specified postprocedural states; Z90.49 Acquired absence of other specified parts of digestive tract; Z86.010 Personal history of colon polyps; Z85.038 Personal history of other malignant neoplasm of large intestine; Y83.8 Other surgical procedures as the cause of abnormal reaction of the patient, or of later complication, without mention of misadventure at the time of the procedure
CPT/HCPCS: 97597

== ENCOUNTER 2020-07-23 12:01 | Day surgery (SDC) | payer BC ==
[2020-07-23] MEDS ORDERED: LIDOcaine 2% 5ml jelly ONE (12:20)
== END 2020-07-23 13:20 | disposition home or self-care (01) ==
LOC: WOUND CARE 12:01
PROVIDERS: ATTEND Nurse Practitioner
DX: T81.31XD Disruption of external operation (surgical) wound, not elsewhere classified, subsequent encounter (principal); L98.492 Non-pressure chronic ulcer of skin of other sites with fat layer exposed; N18.2 Chronic kidney disease, stage 2 (mild); F17.210 Nicotine dependence, cigarettes, uncomplicated; Z79.899 Other long term (current) drug therapy; Z98.890 Other specified postprocedural states; Z90.49 Acquired absence of other specified parts of digestive tract; Z86.010 Personal history of colon polyps; Z85.038 Personal history of other malignant neoplasm of large intestine; Y83.8 Other surgical procedures as the cause of abnormal reaction of the patient, or of later complication, without mention of misadventure at the time of the procedure
CPT/HCPCS: 97597